=== PATIENT | male | born 1965 | race Caucasian/White ===

== ENCOUNTER 2025-03-02 11:27 | Emergency (ER) | payer BC, MEDICAID, SELFPAY ==
[2025-03-02 11:46] VITALS: BP 121/77; PULSE 85; RESP 16; TEMP 36.6; O2SAT 99; BMI 26.7
--- NOTE | 2025-03-02 11:56 | W.ED.ABDPA2 ---
HPI - Abdominal Pain General: Chief Complaint: Abdominal Pain Stated Complaint: Fluid build up on stomach Time Seen by Provider: 03/02/25 11:49 Source: patient Mode of arrival: ambulatory Limitations: no limitations History of Present Illness: 59-year-old male history of cirrhosis states he had had a paracentesis a month ago he started to have increased swelling and some pain he rates his pain a 4 out of 10 he denies any shortness of breath denies any fevers denies any worse improving factors. Associated Symptoms: Denies chills, diarrhea, fever(s), nausea and vomiting Related Data Home Medications ?Medication ?Instructions ?Recorded ?Confirmed baclofen 5 mg tablet 5 mg PO BID PRN muscle spasms 03/02/25 03/02/25 furosemide 40 mg tablet 40 mg PO DAILY 03/02/25 03/02/25 spironolactone 50 mg tablet 50 mg PO DAILY 03/02/25 03/02/25 Allergies Allergy/AdvReac Type Severity Reaction Status Date / Time No Known Allergies Allergy Verified 03/02/25 11:48 Review of Systems Const: Denies: fever(s), chills, body aches or change in appetite ENMT: Denies: throat pain or dental pain Card: Denies: chest pain Resp: Denies: dyspnea GI: Reports: abdominal pain; Denies: nausea, vomiting or diarrhea Musc: Denies: neck pain or back pain Skin/Breast: Denies: rash Neuro: Denies: headache(s) Physical Exam Const: COMMON NORMALS: no acute distress, patient oriented x3 and healthy appearing HENMT: COMMON NORMALS: normocephalic and atraumatic HEAD & SCALP: normocephalic and atraumatic Eye: COMMON NORMALS: conjunctivae normal CONJUNCTIVA: Yes conjunctivae normal Neck/C-Spine: COMMON NORMALS: full ROM and supple Chest: COMMONS NORMALS: normal inspection of the chest Resp: COMMON NORMALS: normal respiratory effort Cardio: COMMON NORMALS: regular rate RATE: regular rate GI: COMMON NORMALS: non-tender and no masses OTHER: distended abd Extremity: COMMON NORMALS: normal to inspection and full ROM Neuro: COMMON NORMALS: patient oriented x3, moves all extremities and no focal motor deficits Psych: COMMON NORMALS: mental status grossly normal, Normal thought process present and cooperative THOUGHT PROCESS: Normal thought process present Skin: COMMON NORMALS: no rashes or lesions noted and no wounds GENERAL SKIN EXAM: no rashes or lesions noted Course Vital Signs: Vital signs: Vital Signs Temperature 97.9 F 03/02/25 11:46 Pulse Rate 85 03/02/25 11:46 Respiratory Rate 16 03/02/25 11:46 Blood Pressure 145/56 03/02/25 12:46 Pulse Oximetry 99 03/02/25 12:46 Oxygen Delivery Me thod Room Air 03/02/25 11:46 MDM - Abdominal Pain Medical Decision Making Patient presents here with ascites and had 6 L drained off his abdomen he stable for discharge follow-up PCP return if worsening. Medical Records I reviewed the patient's medical records. Lab Data I reviewed the patient's lab results. 03/02/25 11:58 Labs/Radiology: Laboratory Results WBC 8.49 10^3/uL (3.29-11.43) 03/02/25 11:58 RBC 3.63 10^6/uL (3.85-5.65) L 03/02/25 11:58 Hgb 12.00 g/dL (11.27-16.99) 03/02/25 11:58 Hct 36.1 % (37-53) L 03/02/25 11:58 MCV 99.4 fl (82-101) 03/02/25 11:58 MCH 33.1 pg (27-33) H 03/02/25 11:58 MCHC 33.2 g/dL (30-55) 03/02/25 11:58 RDW 12.0 % (12.1-15.1) L 03/02/25 11:58 Plt Count 181 10^3/cmm (157-399) 03/02/25 11:58 MPV 10.1 fL (7.4-10.4) 03/02/25 11:58 Neut % (Auto) 65.6 % 03/02/25 11:58 Lymph % (Auto) 20.0 % 03/02/25 11:58 [place] % (Auto) 8.8 % 03/02/25 11:58 Eos % (Auto) 4.2 % 03/02/25 11:58 Baso % (Auto) 0.9 % 03/02/25 11:58 Neut # (Auto) 5.56 10^3/uL (1.8-7.7) 03/02/25 11:58 Lymph # (Auto) 1.7 10^3/uL (0.8-4.8) 03/02/25 11:58 [place] # (Auto) 0.8 10^3/uL (0.2-0.9) 03/02/25 11:58 Eos # (Auto) 0.4 10^3/uL (0.0-0.8) 03/02/25 11:58 Baso # (Auto) 0.1 10^3/uL (0.0-0.1) 03/02/25 11:58 Nucleated RBC % (auto) 0 % 03/02/25 11:58 Nucleated RBCs # 0.0 /100WBC 03/02/25 11:58 Sodium Cancelled 03/02/25 11:58 Potassium Cancelled 03/02/25 11:58 Chloride Cancelled 03/02/25 11:58 Carbon Dioxide Cancelled 03/02/25 11:58 Anion Gap Cancelled 03/02/25 11:58 BUN Cancelled 03/02/25 11:58 Creatinine Cancelled 03/02/25 11:58 GFR Calculation Cancelled 03/02/25 11:58 Glucose Cancelled 03/02/25 11:58 Calculated Osmolality Cancelled 03/02/25 11:58 Calcium Cancelled 03/02/25 11:58 Total Bilirubin Cancelled 03/02/25 11:58 AST Cancelled 03/02/25 11:58 ALT Cancelled 03/02/25 11:58 Alkaline Phosphatase Cancelled 03/02/25 11:58 NT-Pro-B Natriuret Pep Cancelled 03/02/25 11:58 Total Protein Cancelled 03/02/25 11:58 Albumin Cancelled 03/02/25 11:58 Globulin Cancelled 03/02/25 11:58 No radiology studies performed this visit Discharge Plan Discharge Patient Disposition: Home Clinical Impression: Abdominal ascites Condition: Stable Prescriptions: No Action furosemide 40 mg tablet 40 mg PO DAILY spironolactone 50 mg tablet 50 mg PO DAILY baclofen 5 mg tablet 5 mg PO BID PRN (Reason: muscle spasms) Discharge Orders: Discharge ED (Routine); Ordered 03/02/25 Ordered By: Eder Martin Discharge Diet: Advance as tolerated Discharge Activity: Resume usual activity Patient Instructions: Ascites (ED) Print Language: Belarusian Coding Level of Care Code ED Health Safety And Environment Manager for René Peraza
--- NOTE | 2025-03-02 12:11 | US_ITS ---
WS: [id number] ULTRASOUND-GUIDED THERAPEUTIC AND DIAGNOSTIC PARACENTESIS Procedure, risks, and complications have been explained to the patient. Consent is obtained. Utilizing aseptic technique and 1% buffered lidocaine, a small dermatome was made through which a 5 [place] Yueh catheter was inserted. Approximately 6000 ml of clear peritoneal fluid was obtained without difficulty. No complications encountered. Specimen collected for analysis as requested. US/US paracentesis abd w [id number] IMPRESSION: Uncomplicated paracentesis yielding 6000 ml of peritoneal fluid.
[2025-03-02 12:41] LABS: Hematocrit 36.1 % (37-53); Hemoglobin 12.00 g/dL (11.27-16.99); Mean Corpuscular HGB Conc 33.2 g/dL (30-55); Mean Corpuscular Hemoglobin 33.1 pg (27-33); Mean Corpuscular Volume 99.4 fl (82-101); Nucleated Red Blood Cells % 0 %; Platelet Count 181 10^3/cmm (157-399); Red Blood Count 3.63 10^6/uL (3.85-5.65); White Blood Count 8.49 10^3/uL (3.29-11.43)
[2025-03-02 12:46] VITALS: BP 145/56; O2SAT 99
[2025-03-02 14:36] LABS: Alanine Aminotransferase 9 U/L (0-41); Albumin Level 3.2 g/dL (3.5-5.2); Alkaline Phosphatase 87 U/L (40-130); Anion Gap 16.2 (5-19); Aspartate Amino Transferase 25 U/L (0-40); Blood Urea Nitrogen 6 mg/dL (6-20); Calcium 8.6 mg/dL (8.5-10.5); Carbon Dioxide 26 mmol/L (22-29); Chloride 93 mmol/L (98-107); Creatinine Clr Calc Pharmacy 154.3185; Globulin 4.5 g/dL (1.3-4.6); Glucose 91 mg/dL (65-115); NT Pro B Type Natriuretic Pept 228 pg/mL (0-125); Osmolality Calculated 269 mOsm/kg (285-295); Potassium 4.2 mmol/L (3.5-5.1); Sodium 131 mmol/L (136-145); Total Protein 7.7 g/dL (6.6-8.7)
== END 2025-03-02 14:04 | disposition home or self-care (01) ==
PROVIDERS: Emergency Provider Emergency Medicine
DX: R18.8 Other ascites (principal)
CPT/HCPCS: 36415; 49083; 80053; 83880; 85025; 99284